=== PATIENT | female | born 1990 | race African-American/Black ===

== ENCOUNTER → 2023-05-04 | Emergency (ER) | payer SELFPAY ==
[~2023-05-04] MED LIST: FLUORESCEIN SODIUM 1 MG/WRAP ONE; TETRACAINE HCL 0.5% 4ML OPTH OPTH ONE
--- NOTE | 2023-05-04 11:41 | EDPHYS ---
Physician Documentation [facility] Name: Honey Norris Age: 32 yrs Sex: Female : 1990 Arrival Date: 05/04/2023 Time: 10:35 Bed 19 Private MD: ED Physician Emir Otoole HPI: 05/04 10:53 This 32 yrs old Black Female presents to ER via Unassigned with complaints of bilateral ec2 eye pain. 10:53 Patient arrives today for evaluation of bilateral eye pain. Patient reports that she ec2 has been experiencing eye pain since this morning. States that she had put some artificial contacts in her eyes to change her eye color and subsequently fell asleep and then, when she woke up she had pain in both eyes. States that the pain got better with removing the contacts, states that she has no pain in the dark however does have pain in the bilateral eyes with bright lights. She reports no history of eye pathology, reports no typical contact lens wearing. Patient reports no previous eye surgeries.. Historical: - Allergies: 10:56 No Known Allergies; hb - Home Meds: 10:56 None [Active]; hb - PMHx: 10:56 None; hb - PSHx: 10:56 None; hb ROS: 10:53 Constitutional: as per hpi ec2 Exam: 10:53 Constitutional: GEN: NAD Head: atraumatic Eyes: EOMI Ears: External ears are ec2 normal. CV: regular rate LUNGS: no respiratory distress ABD: non-distended SKIN: no evidence of rashes MSK: no evidence of trauma NEURO: moves all extremities equally Vital Signs: 10:55 Pulse 77; Resp 18; Temp 97.9(TE); Pulse Ox 100% on R/A; Pain 10/10; hb 10:55 Pain Scale: Adult hb MDM: 10:48 Patient medically screened. ec2 10:53 Data reviewed: vital signs. ED course: Patient arrives today due to concern for ec2 bilateral eye pain. Examination remarkable for nontoxic individual who was acutely uncomfortable when attempted to visualize the globes. Will use tetracaine to anesthetize the eyes to get a better visualization. She reports that she has no retained foreign bodies and had removed the contacts earlier today.. 11:39 ED course: After tetracaine administration, I performed corneal stain which showed no ec2 significant fluorescein uptake, possible abrasion to the left eyeball. I was able to give better visualization of both globes, no evidence of hyphema, no evidence of hypopyon, has intact extraocular motions, does have significant conjunctival injection in the bilateral eyes. I suspect patient's recent foreign body with a contact lenses are causing the patient's symptoms, no evidence of retained foreign bodies at this time. I have a low suspicion for other processes such as acute angle-closure glaucoma, low suspicion for iritis. Will treat for conjunctivitis. Patient discharged home. Return precautions given.. 05/04 10:53 Order name: Eye Tray; Complete Time: 11:20 ec2 05/04 10:53 Order name: Fluoresene Opth strip; Complete Time: 11:20 ec2 Administered Medications: 11:20 Drug: Tetracaine Ophthalmic Drops 0.5 % 1 drops Ophthalmic once Route: Ophthalmic; kc6 Site: both eyes; Disposition Summary: 05/04/23 11:41 Discharge Ordered Notes: Location: Home ec2 Condition: Stable ec2 Diagnosis - Other mucopurulent conjunctivitis, bilateral ec2 Followup: ec2 - With: Joel Jewell MD - When: - Reason: Recheck today's complaints Discharge Instructions: - Discharge Summary Sheet ec2 - Bacterial Conjunctivitis, Adult, [id number] ec2 Forms: - Medication Reconciliation Form ec2 - Thank You Letter ec2 - Antibiotic Education ec2 - Prescription Opioid Use ec2 - Patient Portal Instructions ec2 - Leadership Thank You Letter ec2 Prescriptions: - ketorolac 0.5 % Ophthalmic drops - instill 1 drop OPHTHALMIC route every 6 hours for 72 hours; 5 milliliter; ec2 Refills: 0, Product Selection Permitted - Erythromycin 5 mg/gram (0.5 %) Ophthalmic ointment - apply 1 centimeter OPHTHALMIC route 2-3 times daily for 7 days; 1 unit; ec2 Refills: 0, Product Selection Permitted Signatures: Selena Bliss RN RN Guadalupe Lebron RN RN kc6 Emir Otoole MD MD ec2 Corrections: (The following items were deleted from the chart) 11:03 11:03 Patient medically screened. ec2 ec2
--- NOTE | 2023-05-04 11:41 | ER ---
Nurse's Notes [facility] Name: Honey Norris Age: 32 yrs Sex: Female : 1990 Arrival Date: 05/04/2023 Time: 10:35 Bed 19 Private MD: Diagnosis: Other mucopurulent conjunctivitis, bilateral Presentation: 05/04 10:55 Chief complaint: Severe bilateral eye pain and photosensitivity after sleeping in hb contacts overnight. Coronavirus screen: At this time, the client does not indicate any symptoms associated with coronavirus-19. Ebola Screen: No symptoms or risks identified at this time. Initial Sepsis Screen: Does the patient meet any 2 criteria? No. Patient's initial sepsis screen is negative. Does the patient have a suspected source of infection? No. Patient's initial sepsis screen is negative. Risk Assessment: Do you want to hurt yourself or someone else? Patient reports no desire to harm self or others. Onset of symptoms was May 04, 2023. 10:55 Method Of Arrival: Ambulatory hb 10:55 Acuity: KEITH 4 hb Historical: - Allergies: 10:56 No Known Allergies; hb - Home Meds: 10:56 None [Active]; hb - PMHx: 10:56 None; hb - PSHx: 10:56 None; hb Screenin:45 [facility] ED Fall Risk Assessment (Adult) History of falling in the last 3 months, kc6 including since admission No falls in past 3 months (0 pts) Confusion or Disorientation No (0 pts) Intoxicated or Sedated No (0 pts) Impaired Gait No (0 pts) Mobility Assist Device Used No (0 pt) Altered Elimination No (0 pt) Score/Fall Risk Level 0 - 2 = Low Risk. Abuse screen: Denies threats or abuse. Denies injuries from another. Nutritional screening: No deficits noted. Tuberculosis screening: No symptoms or risk factors identified. Assessment: 10:45 General: Appears in no apparent distress. uncomfortable, well groomed, well developed, kc6 Behavior is cooperative, appropriate for age, anxious. Pain: Complains of pain in right eye and left eye Pain does not radiate. Neuro: Level of Consciousness is awake, alert, obeys commands, Oriented to person, place, time, situation, Appropriate for age. Cardiovascular: Capillary refill < 3 seconds. Respiratory: Airway is patent Trachea midline Respiratory effort is even, unlabored, Respiratory pattern is regular, symmetrical. GI: No signs and/or symptoms were reported involving the gastrointestinal system. : No signs and/or symptoms were reported regarding the genitourinary system. EENT: Reports blurred vision pain photophobia. Derm: No signs and/or symptoms reported regarding the dermatologic system. Skin is intact, is healthy with good turgor, Skin is pink, warm \T\ dry. Musculoskeletal: No signs and/or symptoms reported regarding the musculoskeletal system. Circulation, motion, and sensation intact. Capillary refill < 3 seconds, Range of motion: intact in all extremities. Vital Signs: 10:55 Pulse 77; Resp 18; Temp 97.9(TE); Pulse Ox 100% on R/A; Pain 10/10; hb 10:55 Pain Scale: Adult hb ED Course: 10:41 Patient arrived in ED. mr 10:41 Emir Otoole MD is Attending Physician. ec2 10:45 Patient has correct armband on for positive identification. Bed in low position. Call kc6 light in reach. Side rails up X 1. Adult w/ patient. Client placed on continuous cardiac and pulse oximetry monitoring. NIBP monitoring applied. 10:45 Patient maintains SpO2 saturation greater than 95% on room air. kc6 10:56 Triage completed. hb 10:56 Arm band placed on. hb 11:20 Guadalupe Lebron, MERLY is Primary Nurse. kc6 11:41 Joel Jewell MD is Referral Physician. ec2 11:50 No provider procedures requiring assistance completed. Patient did not have IV access kc6 during this emergency room visit. Administered Medications: 11:20 Drug: Tetracaine Ophthalmic Drops 0.5 % 1 drops Ophthalmic once Route: Ophthalmic; kc6 Site: both eyes; Medication: 11:50 VIS not applicable for this client. kc6 Outcome: 11:41 Discharge ordered by . ec2 11:50 Discharged to home ambulatory, with family, kc6 11:50 Condition: good 11:50 Discharge instructions given to patient, family, Instructed on discharge instructions, follow up and referral plans. medication usage, Demonstrated understanding of instructions, follow-up care, medications, Prescriptions given X 2, 11:50 Patient left the ED. kc6 Signatures: Rosario Ta, Reg Reg Selena Victor, RN RN hb Guadalupe Lebron RN RN kc6 Emir Otoole MD MD ec2 Corrections: (The following items were deleted from the chart) 11:22 11:22 Patient maintains SpO2 saturation greater than 95% on room air. kc6 kc6
[2023-05-04 12:43] VITALS: TEMP 97.9; O2SAT 100
== END ==
LOC: ER 10:35
DX: H10.023 Other mucopurulent conjunctivitis, bilateral (principal)
CPT/HCPCS: 99284